=== PATIENT | female | born 1960 | race African-American/Black ===

== ENCOUNTER 2018-02-24 14:56 | Emergency (ER) | payer MEDICAID ==
[~2018-02-24] VITALS: Ht 162.6 cm; Wt 63.5 kg
[2018-02-24 15:15] VITALS: BP 166/93
[2018-02-24 16:02] LABS: APPEARANCE,URINE CLEAR; BILIRUBIN, URINE NEGATIVE (NEGATIVE); GLUCOSE, URINE (UA) NEGATIVE (NEGATIVE); KETONES,URINE 2+ (NEGATIVE); LEUKOCYTE ESTERASE ,URINE 1+ (NEGATIVE); NITRITE,URINE NEGATIVE (NEGATIVE); PH,URINE 5 (4.5-8.0); PROTEIN,URINE 2+ (NEGATIVE); UROBILINOGEN,URINE NORMAL MG/DL (0.0-1.0)
--- NOTE | 2018-02-24 16:04 | Emergency Room Report ---
History of Present Illness General Chief Complaint: Headache Source: Patient Present Illness HPI 57 YO Female Pt. presents to the ED c/o 04/21 in severity of painful migraine localized to the left-side x 3 days , describes typical migraine, currently out of migraine medication Fioricet. Patient reports that her current presentation of migraine is consistent with previous episodes in the past. Patient denies nausea, vomiting, ringing in the ears or hyperacusis. Patient does report sensitivity to light. Patient denies neck or back pain. Patient denies urinary frequency, dysuria or hematuria.patient denies sudden onset of her symptoms. Pt. reports she usually takes Fioricet w. codeine. Allergies: Coded Allergies: No Known Allergies (Unverified , 02/24/18) Patient History Past Medical History: see triage record, migraines Past Surgical History: none Pertinent Family History: none Last Menstrual Period: menopause Now: No Immunizations: UTD Reviewed Nursing Documentation: PMH: Agreed; PSxH: Agreed Nursing Documentation-PMH Past Medical History: No History, Except For Hx Neurological Problems: Yes - Migraine Review of Systems All Other Systems: negative except mentioned in HPI Physical Exam Vital Signs Date Time Temp Pulse Resp B/P (MAP) Pulse Ox O2 Delivery O2 Flow Rate FiO2 02/24/18 15:08 98.1 69 16 166/93 97 Room Air 98.1 Sp02 EP Interpretation: reviewed, normal General Appearance: no apparent distress, alert, GCS 15, non-toxic Head: normocephalic, atraumatic Eyes: bilateral eye normal inspection, bilateral eye PERRL, bilateral eye photophobia ENT: hearing grossly normal, normal voice Neck: full range of motion, no meningismus, no bony tend Respiratory: lungs clear, normal breath sounds, speaking full sentences Cardiovascular #1: regular rate, rhythm Rectal: deferred Genitourinary: normal inspection Musculoskeletal: back normal, gait/station normal, normal range of motion, non- tender Neurologic: alert, oriented x3, responsive, motor strength/tone normal, sensory intact, normal gait, speech normal, grossly normal Psychiatric: judgement/insight normal Skin: normal color, no rash, warm/dry, well hydrated Lymphatic: no adenopathy Medical Decision Making PA Attestation Dr. Sam is my supervising Physician whom patient management has been discussed with. Diagnostic Impression: Primary Impression: Headache Qualified Codes: G44.099 - Other trigeminal autonomic cephalgias (tac), not intractable ER Course 57 YO Female Pt. presents to the ED c/o 04/21 in severity of painful migraine localized to the left-side x 3 days , describes typical migraine, currently out of migraine medication Fioricet. Patient reports that her current presentation of migraine is consistent with previous episodes in the past. Patient denies nausea, vomiting, ringing in the ears or hyperacusis. Patient does report sensitivity to light. Patient denies neck or back pain. Patient denies urinary frequency, dysuria or hematuria.patient denies sudden onset of her symptoms. Pt. reports she usually takes Fioricet w. codeine. Ddx considered but are not limited to migraine, SAH, Pseudomotor Cerebri, Mass lesion, Cluster SHORT, Tension SHORT, Post lumbar puncture SHORT. -CURES: pt. has multiple open rx's for narcotics within the last week and a half. pt. should have adequate amt. of medications according to cures report. Vital signs: are WNL, pt. is afebrile H&PE are most consistent with migraine headache ORDERS: - UA: WNL ED INTERVENTIONS: -Fioricet -IM Toradol DISCHARGE: At this time pt. is stable for d/c to home. Will provide printed patient care instructions, and any necessary prescriptions. Care plan and follow up instructions have been discussed with the patient prior to discharge. Labs Test 02/24/18 15:45 Urine Color Yellow Urine Appearance Clear Urine pH 5 (4.5-8.0) Urine Specific [place] 1.020 (1.005-1.035) Urine Protein 2+ (NEGATIVE) Urine Glucose (UA) Negative (NEGATIVE) Urine Ketones 2+ (NEGATIVE) Urine Occult Blood Negative (NEGATIVE) Urine Nitrite Negative (NEGATIVE) Urine Bilirubin Negative (NEGATIVE) Urine Urobilinogen Normal MG/DL (0.0-1.0) Urine Leukocyte Esterase 1+ (NEGATIVE) Urine RBC 0-2 /HPF (0 - 2) Urine WBC 2-4 /HPF (0 - 2) Urine Squamous Epithelial Cells Occasional /LPF Urine Bacteria Few /HPF (NONE) Last Vital Signs Date Time Temp Pulse Resp B/P (MAP) Pulse Ox O2 Delivery O2 Flow Rate FiO2 02/24/18 15:08 98.1 69 16 166/93 97 Room Air 98.1 Disposition: HOME, SELF-CARE Condition: Stable Scripts Aspirin/Caffeine/Butalbital (Fiorinal 50-325-40 mg Capsule) 1 Each Capsule 1 EA PO Q6HR, #10 CAP Prov: Hali Washington 02/24/18 Referrals: NOT CHOSEN IPA/MD,REFERRING (PCP) Patient Instructions: Migraine Headache Additional Instructions: Take medications as directed. Follow up with a Primary Care Provider in 3-5 days For a referral to have NEUROLOGIST Evaluation, even if your symptoms have resolved. --Please review list of primary care clinics, if you do not already have a primary care provider Return sooner to ED if new symptoms occur, or current symptoms become worse. - Please note that this Emergency Department Report was dictated using [employer] activities director technology software, occasionally this can lead to erroneous entry secondary to interpretation by the dictation equipment. Hali Washington Feb 24, 2018 16:04
[2018-02-24 16:08] LABS: COLOR,URINE YELLOW
[2018-02-24] MEDS ORDERED: Ketorolac 60mg Inj IM ONE (16:30)
[2018-02-24] MEDS ORDERED: FIORINAL 50-321 EACH PO (17:27)
[2018-02-24 17:34] VITALS: BP 141/74
== END 2018-02-24 17:35 | disposition home or self-care (01) ==
LOC: EMR 15:36
DX: G44.099 Other trigeminal autonomic cephalgias (TAC), not intractable (principal)
CPT/HCPCS: 81003; 96372; 99283